=== PATIENT | male | born 1955 | race Hispanic/Latino ===

== ENCOUNTER 2019-05-24 21:05 | Inpatient (IN) | payer BC, MEDICARE ==
[~2019-05-24] VITALS: Ht 162.6 cm; Wt 91.6 kg
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
[2019-05-24 23:07] LABS: BASOPHILS % 0.5 % (0.0-1.0); EOSINOPHILS # (AUTO) 0.3 (0.0-0.4); EOSINOPHILS % 3.4 % (0.0-6.0); HEMOGLOBIN 15.7 g/dL (14.0-18.0); LYMPHOCYTES # (AUTO) 2.4 (1.0-3.2); LYMPHOCYTES % 30.4 % (18.0-39.1); MEAN CORPUSCULAR HEMOGLOBIN 31.8 pg (28-32); MEAN CORPUSCULAR HGB CONC 34.9 g/dL (31-35); MEAN CORPUSCULAR VOLUME 91.3 fL (81-99); MONOCYTES # (AUTO) 0.9 (0.2-0.8); MONOCYTES % 11.5 % (4.4-11.3); NEUTROPHILS # (AUTO) 4.2 (2.1-6.9); NEUTROPHILS % 53.7 % (38.7-80.0); PLATELET COUNT 215 x10e3/uL (140-360); RED BLOOD COUNT 4.93 x10e6/uL (4.3-5.7); RED CELL DISTRIBUTION WIDTH 11.8 % (11.7-14.4)
[2019-05-24 23:20] LABS: ALANINE AMINOTRANSFERASE 46 IU/L (0-55); ALBUMIN 3.7 g/dL (3.5-5.0); ALBUMIN/GLOBULIN RATIO 0.9 (0.8-2.0); ALKALINE PHOSPHATASE 114 IU/L (40-150); ANION GAP 12.8 mmol/L (8-16); BLOOD UREA NITROGEN 16 mg/dL (7-26); BUN/CREATININE RATIO 18 (6-25); CALCIUM 9.5 mg/dL (8.4-10.2); CARBON DIOXIDE 26 mmol/L (22-29); CHLORIDE 102 mmol/L (98-107); CREATININE, SERUM 0.88 mg/dL (0.72-1.25); EST GLOMERULAR FILTRATION RATE > 60 ML/MIN (60-); GLUCOSE 112 mg/dL (74-118); POTASSIUM 3.8 mmol/L (3.5-5.1); SODIUM 137 mmol/L (136-145)
[2019-05-24] MEDS ORDERED: PIPER-TAZ 3.375 GM 50 ML IV ONE (23:30)
[2019-05-24] MEDS ORDERED: VANCOMYCIN 1GM/NS 250 ML 250 ML IV ONE (23:30)
--- NOTE | 2019-05-25 00:12 | Diagnostic Imaging Report ---
HAND 3+ VIEWS LEFT - 3 views HISTORY: Pain COMPARISON: None available. FINDINGS: Bones: No acute displaced fracture. Osseous alignment is within normal limits. Joints: The joint spaces are well-maintained. Soft tissues: Fifth digit soft tissue swelling. IMPRESSION: No acute fracture or dislocation of the left hand. Fifth digit soft tissue swelling. Signed by: Dr. Arnaldo Salazar MD on 05/25/2019 12:09 AM
[2019-05-25] MEDS ORDERED: ONDANSETRON HCL INJ 2MG/ML 2ML 2 MG/ML VIAL IV PRN (00:30)
[2019-05-25] MEDS ORDERED: HYDROCODONE/APAP 10MG-325MG TAB PO PRN (00:30)
[2019-05-25] MEDS: PIPER-TAZ 3.375 GM 50 ML IV SCH ×3 (06:38→21:35)
[2019-05-25 09:15] VITALS: BP 122/86
[2019-05-25 10:00] VITALS: BP 122/86
--- NOTE | 2019-05-25 10:33 | NUR ---
PT TO THE FLOOR FROM ER. VITALS WNL. PT DENIES NEEDS AT THIS TIME.
[2019-05-25 10:48] VITALS: BP 161/98
--- NOTE | 2019-05-25 12:13 | Consultation ---
DATE OF CONSULTATION: 05/25/2019 REASON FOR CONSULTATION: Spider bite, left fifth digit. HISTORY OF PRESENT ILLNESS: The patient is a pleasant, nondiabetic, 63-year-old male, who was bitten by a spider 9 days ago. He now is admitted complaining of pain and swelling of the left 5th digit. He apparently was given Keflex, but did not take it. The patient is nondiabetic. PHYSICAL EXAMINATION: There is a swelling and fusiform deformity of the left fifth finger over the proximal phalanx. There is tenderness on flexion. There is a small necrotic patch of skin in the area. There is some minimal streaking of the arm. ASSESSMENT: Infected spider bite, left fifth digit, possible tenosynovitis. PLAN: To give antibiotics as per ID. I will defer further treatment and surgical intervention as needed. We will consult Dr. Paul Reddy, Plastic Surgery. Thank you very much for the courtesy of this consult. MD KEREN Sebastian/EMILIE /[id number] ANKUSH
[2019-05-25] MEDS ORDERED: CEPHALEXIN500 MG PO (13:20)
[2019-05-25] MEDS ORDERED: LISINOPRIL10 MG PO (13:20)
[2019-05-25] MEDS ORDERED: MUPIROCIN22 GM TOP (13:20)
[2019-05-25 15:01] VITALS: BP 120/81
--- NOTE | 2019-05-25 16:20 | NUR ---
[id number] time spent 60 min
--- NOTE | 2019-05-25 18:56 | History and Physical ---
Mr. Velazquez is a pleasant 63-year-old man, who presented to the emergency room overnight with a complaint of swelling of his left 5th finger erythema. HISTORY OF PRESENT ILLNESS: The patient is slightly vague, but thinks that maybe he was bitten by a bee or spider, maybe as much as 9 days ago, but actually visited [facility] and was given Keflex 500 mg twice a day on Wednesday, May 20, but pill count suggesting may not be taken on a regular basis. He admits that he keeps his gloves in the garage. PAST MEDICAL HISTORY: Relatively insignificant. He was given lisinopril 10 mg daily by his family doctor, which he thinks he does not take. He only things his blood pressures higher in the doctor's office. He has had remote right knee arthroscope. PERSONAL AND SOCIAL HISTORY: Does not smoke nor drink. REVIEW OF SYSTEMS: Fourteen systems are all negative. PHYSICAL EXAMINATION: GENERAL: At this time shows a pleasant, obese, man, who is 5 feet 4 inches tall, weighing 212 pounds. Normotensive. HEAD, EYES, EARS, NOSE, AND THROAT: Unremarkable. NECK: No jugular venous distention. THORAX: Heart sounds S1 and S2 are equal. No murmurs. LUNGS: Clear. ABDOMEN: Protuberant. EXTREMITIES: No cyanosis, clubbing, or edema. There is a small healing wound on the dorsum of the left hand, but the left 5th finger and the 1st phalanx has a flaking lesion, 4 to 5 mm in diameter with surrounding erythema, extending also to the dorsum of the left hand. LABORATORY STUDIES: Grossly unremarkable with a glucose of 112. White count 7.8. ASSESSMENT: Cellulitis, possibly spider bite, could be a brown recluse spider. PLAN: The patient has been given broad-spectrum antibiotics. We will ask Surgical consultation to consider debridement. Further management based on the clinical course. MD LENORA Serrato/EMILIE /[id number] cc: MD Fredo Shin MD Francois Ferron
[2019-05-25 20:00] VITALS: BP 135/98
[2019-05-25] MEDS ORDERED: SODIUM CHLORIDE 0.9% 250ML 250 ML ONE (20:27)
--- NOTE | 2019-05-25 23:37 | Consultation ---
DATE OF CONSULTATION: HISTORY OF PRESENT ILLNESS: This patient is very pleasant 63-year-old gentleman, who is still worse. The patient a few weeks ago while he was cleaning his backyard, he was cleaning an old wood drawer, he thinks he stuck with something. He definitely had some bee hives the next day after he was cleaning the trash when he stuck his right hand. He is coming with redness and swelling of his left hand. This started at the 5th digit. He was seen by physician at Urgent Care and he was given oral antibiotic Keflex without any improvement, but also of interest, he also has another redness and swelling at the base of his third finger. The patient was currently lying in bed comfortably. He was started on vancomycin and Zosyn. I was asked to see him. PAST MEDICAL HISTORY: He denies. PAST SURGICAL HISTORY: He denies. ALLERGIES: NKA. SOCIAL HISTORY: There is no smoking, drug abuse, or alcohol abuse. FAMILY HISTORY: Otherwise unremarkable. REVIEW OF SYSTEMS: HEENT: Negative. PULMONARY: Negative. CARDIAC: Negative. GENITOURINARY: Negative. SKIN: There are no other rashes. PHYSICAL EXAMINATION: GENERAL: He is currently alert, oriented, does not seem to be in acute distress. VITAL SIGNS: Stable, currently afebrile. HEENT: Normocephalic, not icteric. NECK: Supple. No JVD. No lymphadenopathy. No thyromegaly. CHEST: Clear bilateral. HEART: S1, S2. No S3, S4, murmur. ABDOMEN: Soft. Bowel sounds present. No tenderness. No hepatosplenomegaly. EXTREMITIES: No edema. SKIN: There is no rash. There is a redness and swelling of his hand especially at the fifth finger. Also, there is redness, swelling at the base of the fifth finger as well as also redness and swelling at the base of the third finger. I do not see any drainage at the present time, but he is telling me that in the Urgent Care, there was pus drained. LABORATORY DATA: Reviewed white count 7.83, hemoglobin 15.7, sodium 137, potassium 3.8, and creatinine 0.88. IMPRESSION: Infection of the hand, concerned about tenosynovitis affecting his fifth finger, but I am also concerned about this other infection on the third finger at the dorsal aspect. I am not so sure of two insect bites or something related. He denies being in water or cleaning fish tank, etc. An x-ray was negative. I would recommend to obtain an MRI of the hand with and without contrast. Hand Surgery has been consulted. We need deep tissue culture for AFB and fungal and we will follow. MD LILIANE Shin/EMILIE /[id number]
[2019-05-25 23:39] VITALS: BP 109/66
[2019-05-25] MEDS: VANCOMYCIN 1GM/NS 250 ML 250 ML IV SCH (23:47)
[2019-05-26 04:00] VITALS: BP 129/83
[2019-05-26] MEDS: PIPER-TAZ 3.375 GM 50 ML IV SCH ×3 (05:23→21:47)
[2019-05-26 05:52] LABS: BASOPHILS % 0.6 % (0.0-1.0); EOSINOPHILS # (AUTO) 0.2 (0.0-0.4); EOSINOPHILS % 4.1 % (0.0-6.0); HEMATOCRIT 41.2 % (38.2-49.6); HEMOGLOBIN 14.4 g/dL (14.0-18.0); LYMPHOCYTES # (AUTO) 1.8 (1.0-3.2); LYMPHOCYTES % 34.1 % (18.0-39.1); MEAN CORPUSCULAR HEMOGLOBIN 32.3 pg (28-32); MEAN CORPUSCULAR VOLUME 92.4 fL (81-99); MONOCYTES # (AUTO) 0.6 (0.2-0.8); MONOCYTES % 10.6 % (4.4-11.3); NEUTROPHILS # (AUTO) 2.7 (2.1-6.9); NEUTROPHILS % 50.2 % (38.7-80.0); PLATELET COUNT 198 x10e3/uL (140-360); RED BLOOD COUNT 4.46 x10e6/uL (4.3-5.7); RED CELL DISTRIBUTION WIDTH 11.9 % (11.7-14.4)
[2019-05-26 06:10] LABS: ANION GAP 12.5 mmol/L (8-16); BLOOD UREA NITROGEN 11 mg/dL (7-26); BUN/CREATININE RATIO 14 (6-25); CALCIUM 8.9 mg/dL (8.4-10.2); CARBON DIOXIDE 25 mmol/L (22-29); CHLORIDE 105 mmol/L (98-107); EST GLOMERULAR FILTRATION RATE > 60 ML/MIN (60-); GLUCOSE 93 mg/dL (74-118); POTASSIUM 4.5 mmol/L (3.5-5.1); SODIUM 138 mmol/L (136-145)
--- NOTE | 2019-05-26 07:00 | NUR ---
RECEIVED BEDSIDE REPORT FROM BILL CHECKER RN. PT DENIES NEEDS AT THIS TIME.
[2019-05-26 07:34] VITALS: BP 123/81
--- NOTE | 2019-05-26 08:23 | Diagnostic Imaging Report ---
TECHNIQUE: Magnetic resonance imaging of the LEFT HAND was performed WITHOUT injected contrast. HISTORY: Cellulitis, evaluate for osteomyelitis COMPARISON: None. FINDINGS: Bones: Bone marrow signal is normal. No edema or T1 replacement. No acute fracture or osteonecrosis. Joints: No focal lesions are seen. Soft Tissues: Soft tissue swelling and edema involving the hand most prominent involving the ulnar-sided dorsal aspect and small finger. Confluent fluid dorsal index finger, however evaluation for abscess limited without contrast. The flexor and extensor tendons are intact. No tenosynovitis. IMPRESSION: Cellulitis of the hand. No osteomyelitis. Signed by: Dr. Olegario uCevas M.D. on 05/26/2019 8:20 AM
[2019-05-26 09:00] VITALS: BP 123/81
[2019-05-26 12:11] VITALS: BP 130/86
--- NOTE | 2019-05-26 12:16 | Consultation ---
DATE OF CONSULTATION: CONSULT REQUESTED BY: Dr. Alba. Consult requested to Paul Reddy MD, Hand Surgery. CHIEF COMPLAINT: Left hand infection. HISTORY OF PRESENT ILLNESS: The patient is a 63-year-old right-hand dominant male, who states that approximately 10 days ago when taking out the trash, he sustained an injury to the dorsal aspect of the left little finger, just distal to the MP joint. He states that the area became quite red and swollen within the ensuing 24 hours and he was seen by an Urgent Care Center. He was started on oral antibiotics and told to come back in 48 to 72 hours if it did not improve. The patient states that 2 to 3 days later, the infection appeared to be worsening and he went to a different Urgent Care Center. He was once again evaluated and told to continue the antibiotics. Approximately 48 hours ago, the patient came to the [facility] Emergency Room, where he was noted to have significant infection involving the dorsal and lateral aspects of the left hand and he was admitted for intravenous antibiotics. Consultation is now requested by Hand Surgery for optimal evaluation and to rule out tenosynovitis. PAST MEDICAL HISTORY: Only significant for the fact that several weeks ago, the patient had a separate infection on the dorsal aspect of the left hand over the radial side, which he states an Urgent Care Center needed to drain. PHYSICAL EXAMINATION: VITAL SIGNS: On pertinent physical exam today, the patient is afebrile and the vital signs are stable. EXTREMITIES: The left hand shows a dry adherent eschar in the midportion of the proximal phalanx of the left little finger dorsally. There is an area of surrounding erythema, which extends from the mid metacarpal area over to the ring finger and onto the middle phalanx of the little finger as well. There does not appear to be any drainage nor separation from the area where the dry adherent eschar is. The patient has full flexion and full extension, which does not exhibit significant pain. There is no lymphangitic spread of the erythema proximally. VASCULAR: Within normal limits. NEUROLOGIC: Within normal limits as well. LABORATORY AND IMAGING STUDIES: The patient's white blood cell count was 7.8 on admission and this morning was 5.3. The x-ray shows no acute bony abnormalities and MRI obtained last night shows no evidence of tenosynovitis nor osteomyelitis for surgically drainable condition. IMPRESSION: Cellulitis, left hand. PLAN: The patient states that since this time of admission on Wednesday evening, the hand has improved markedly. The pain has improved as well. The MRI confirms that there was no surgically drainable lesion and there does not appear to be any suppurative tenosynovitis. His blood cultures are negative to date. I would recommend the addition of warm soaks just to enhance the circulation to the area since he is on intravenous antibiotics and recommend observation at this time. The patient will be seen tomorrow in followup. Your expression of professional confidence is greatly appreciated. MD BEBETO Turpin/MODL /[id number]
--- NOTE | 2019-05-26 15:00 | NUR ---
PT'S PRIMARY CARE PROVIDER IS DR. HUI AT [phone]. THIS NURSE PLACED CALL FOR REFERRAL PER DR. EUBANKS ONLY TO FIND THE CLINIC CLOSED.
--- NOTE | 2019-05-26 16:27 | NUR ---
REPORT GIVEN TO LUPE RODRIGUEZ ON MED/SURG 2. PT TRANSFERRED TO ROOM 200. PT DENIED FURTHER NEEDS.
--- NOTE | 2019-05-26 16:33 | NUR ---
PAOLA VIZCAINO CALLED WITH INFORMATION. NO FURTHER ORDERS.
--- NOTE | 2019-05-26 17:00 | NUR ---
HEAT PACKS APPLIED TO PT'S LEFT HAND.
--- NOTE | 2019-05-26 17:10 | NUR ---
The pt. has had PICC line placed and awaiting x ray confirmation.
--- NOTE | 2019-05-26 17:34 | Diagnostic Imaging Report ---
Chest, portable AP view History: Placement Comparison: No comparisons available for review IMPRESSION: Left upper extremity PICC terminates in excellent position at the cavoatrial junction. The heart is within normal limits of size. No focal consolidation, sizable pleural effusion, or pneumothorax. Signed by: Austyn Haney MD on 05/26/2019 5:31 PM
--- NOTE | 2019-05-26 17:37 | NUR ---
Verbal report from Dr Haney radiology, PICC is in good position. PICC is OK to use
[2019-05-26 20:00] VITALS: BP 119/76
--- NOTE | 2019-05-26 20:30 | NUR ---
warm soaks to left hand done, patient tolerated well.
[2019-05-26 21:00] VITALS: BP 119/76
[2019-05-26] MEDS ORDERED: SODIUM CHLORIDE 0.9% 250ML 250 ML ONE (21:32)
[2019-05-26] MEDS: VANCOMYCIN 1GM/NS 250 ML 250 ML IV SCH (23:15)
[2019-05-27] VITALS (9 sets, daily range): BP systolic 114–132; BP diastolic 60–88
[2019-05-27] MEDS: PIPER-TAZ 3.375 GM 50 ML IV SCH ×3 (05:44→21:48)
--- NOTE | 2019-05-27 19:00 | NUR ---
Completed bedside reporting with morning nurse. Pt alert and orient to name, lying in bed HOB 60 degrees. Denies pain at this time. Family at bedside. Call light within reach. Bed low and locked. Will continue to monitor.
--- NOTE | 2019-05-27 23:30 | NUR ---
Report given to oncoming night nurse. Pt alert and orient. Lying in bed. No acute distress noted.
[2019-05-28] VITALS (7 sets, daily range): BP systolic 124–139; BP diastolic 78–86
[2019-05-28] MEDS: VANCOMYCIN 1GM/NS 250 ML 250 ML IV SCH (00:14)
[2019-05-28] MEDS: PIPER-TAZ 3.375 GM 50 ML IV SCH ×3 (05:14→20:26)
--- NOTE | 2019-05-28 06:52 | NUR ---
report given to morning nurse. patient is resting comfortably in bed. bed is in lowest position and call goss is within reach. will continue to monitor patient.
[2019-05-28] MEDS ORDERED: EPSOM SALT 454 GM POWD TOP SCH (10:00)
--- NOTE | 2019-05-28 19:05 | NUR ---
Received report from day nurse. Patient is resting comfortably in bed. Bed is in lowest position and call goss is within reach. Will continue to monitor patient.
[2019-05-29] VITALS (8 sets, daily range): BP systolic 117–159; BP diastolic 72–87
[2019-05-29] MEDS: VANCOMYCIN 1GM/NS 250 ML 250 ML IV SCH ×2 (00:04→23:37)
[2019-05-29] MEDS: PIPER-TAZ 3.375 GM 50 ML IV SCH ×3 (05:25→22:07)
--- NOTE | 2019-05-29 07:00 | NUR ---
RCD PT AT BED PT IS ALERT AND ORIENTED PT RESTING ON BED NO SIGNS OF ANY DISTRESS NOTED IV PATENT BY SALINE FLUSH BED LOW AND LOCKED CALL LIGHT IN REACH
--- NOTE | 2019-05-29 07:05 | NUR ---
report given to day nurse. patient is resting comfortably in bed. bed is in lowest position and call goss is within reach.
[2019-05-29] MEDS: EPSOM SALT 454 GM POWD TOP SCH ×2 (10:00→17:00)
--- NOTE | 2019-05-29 10:37 | NUR ---
spoke with Dr. Acharya's nurse Virgie, still pending auth from insurance for IV abx.
--- NOTE | 2019-05-29 16:25 | NUR ---
[id number] CELLULITS FINGER ABCESS FAILED OPORAL ABX
--- NOTE | 2019-05-29 19:00 | NUR ---
PT RESTING ON BED BED SIDE REPORT GIVEN TO ONCOMING NURSE
--- NOTE | 2019-05-29 19:03 | Progress Note ---
DATE: SUBJECTIVE: Cellulitis of the finger, abscess of the finger. The patient who is currently lying in bed comfortably. His finger feeling better. REVIEW OF SYSTEMS: HEENT: Negative. PULMONARY: Negative. CARDIAC: Negative. PHYSICAL EXAMINATION: GENERAL: He is currently alert, oriented, does not seem to be in acute distress. VITAL SIGNS: Stable, currently afebrile. HEENT: Not icteric. NECK: Supple. CHEST: Clear. HEART: S1, S2. No murmur. ABDOMEN: Soft. EXTREMITIES: The little finger, there is still redness and swelling. The MRI did not show any tendonitis or osteomyelitis, however, when I squeeze the finger, then I was able to obtain one drop of pus. We could not culture by the time I get the culture, it was too late. The patient tells me he was on IV antibiotic. He is feeling better. The finger, there is still erythema and edema as mentioned above. IMPRESSION: Abscess of the finger, failed oral antibiotic. Discussed with the patient. We will seek approval of the insurance. Again, vancomycin 1 g q.12 since he failed oral antibiotic, but responding to IV antibiotic. I will see him next week in my office. If he is feeling better, maybe we can stop early, but that depends. Discussed with the patient and discussed with case management. We will follow with you. MD LILIANE Shin/EMILIE /[id number]
[2019-05-30] VITALS: BP 113/78
[2019-05-30 04:00] VITALS: BP 123/81
[2019-05-30] MEDS: PIPER-TAZ 3.375 GM 50 ML IV SCH ×2 (05:51→14:25)
[2019-05-30 07:58] VITALS: BP 134/76
--- NOTE | 2019-05-30 08:42 | NUR ---
CM called pt's PCP Dr. Jerome's office, per Dr. Acharya's request. They need a referral for insurance to set up IV abx thru the office. [facility]ANS was told by office that they only do office visits, no referrals. EVANS informed Dr. Acharya and asked for orders to set up IV abx thru an infusion company. He stated to hold off since his office is currently working on it.
[2019-05-30 09:07] VITALS: BP 134/76
[2019-05-30] MEDS: EPSOM SALT 454 GM POWD TOP SCH (10:00)
--- NOTE | 2019-05-30 10:56 | NUR ---
EVANS spoke with Dr. Acharya's nurse Virgie. She stated that she called pt's PCP office and Dr. Jerome will call Dr. Acharya today regarding referral. Virgie states they can get auth almost immediately after referral is sent. EVANS informed her that Dr. Alba wants pt to discharge today.
[2019-05-30 12:00] VITALS: BP 189/88
--- NOTE | 2019-05-30 12:16 | NUR ---
Spoke with Dr. Acharya who said IV abx does not need to be set up. He wrote prescription for PO Zyvox and left on chart.
--- NOTE | 2019-05-30 12:30 | NUR ---
Dr. Acharya made rounds. Patient was given prescription for oral antibiotic x 2 weeks and instructions to f/u in clinic and dc PICC line
[2019-05-30] MEDS ORDERED: ZYVOX600 MG PO (13:37)
--- NOTE | 2019-05-30 14:24 | NUR ---
Discharge instructions and prescription given to the patient, he verbalized understanding.
--- NOTE | 2019-05-30 15:18 | Progress Note ---
DATE: SUBJECTIVE: Mr. Velazquez was doing well. No new complaint. I have spent all morning and yesterday to get hold of his primary care physician to get referral for IV antibiotic. I was unsuccessful, asked the Case Management, she was unsuccessful. Apparently, they are retiring soon. The patient is telling me that his PCP is Dr. Bocanegra, who has told that the physician will retire soon. Anyway, I left message to call me. The patient would like to go home. Discussed with all physicians, all surgeons. There is no evidence of osteo or abscess. We will discharge the patient with oral Zyvox 600 mg p.o. q.12 hours. To see me in 2 weeks. Time spend during the day and working on getting hold of his primary care physician, talking with the patient, talking with Dr. Alba, talking with the surgeons 1-hour today. MD LILIANE Shin/EMILIE /[id number]
--- NOTE | 2019-05-30 15:30 | NUR ---
Spoke with Dr. Acharya's nurse Virgie. She states Dr. Jerome's office was asking for clinicals. CM spoke to pt at bedside and pt is agreeable for CM to send clinicals to office. Choice letter signed and placed on chart. Clinicals were faxed to [phone].
[2019-05-30 16:00] VITALS: BP 153/92
--- NOTE | 2019-05-30 16:23 | NUR ---
PICC line removed with tip intact from [facility]
--- NOTE | 2019-05-31 09:43 | Discharge Summary ---
Mr. Velazquez is a pleasant 63-year-old man, who presented to the emergency room on with a complaint of swelling and redness and pain in his left hand. HOSPITAL COURSE: Initial evaluation suggested possible spider bite with secondary cellulitis. He had already been given Keflex as an outpatient basis, but was not getting better. Pill count suggest he might not have been taking his medicines reliably. He was seen by Dr. Acharya, who prescribed IV antibiotics and Dr. Campbell Elmore, felt he did not immediately need debridement, but he suggested consultation with Dr. Reddy, hand surgeon, who did an MRI and CAT scan, which did not show osteomyelitis and did not show involvement of the tendons. He had no surgical procedure, but was started on IV antibiotics and a PICC line was placed. He was given Epsom salts for soaking. Today, the patient is afebrile. Pain is less and he is eager to be discharged home. He will receive IV antibiotics with PICC line with Dr. Acharya. He will follow up with Dr. Jerome on a regular basis. DISCHARGE DIAGNOSES: 1. Probable spider bite. 2. Secondary cellulitis. MD LENORA Serrato/EMILIE /[id number] cc: MD Paul Sebastian MD Francois Ferron Zaher Shebib, MD
--- NOTE | 2019-06-09 13:06 | NUR ---
RUFINA FROM [facility] CALLED AND REQUESTED I FAX DISCHARGE SUMMARY AND DAYTIME BABYSITTERCARBON PRINTER TO [phone], FAXED AND GAVE CONFIRMATION TO SMITA Lee
== END 2019-05-30 17:13 | disposition home or self-care (01) | DRG 603 ==
LOC: ER 21:05 → ERHOLD 05-25 00:29 → IMCU 05-25 10:30 → OBSVTOIN 05-26 13:17 → MED/SURG2 05-26 16:19
PROVIDERS: ADMIT Internal Medicine Cardiovascular Disease; ATTEND Internal Medicine Cardiovascular Disease
PROC: 02HV33Z Insertion of Infusion Device into Superior Vena Cava, Percutaneous Approach (ICD-10-PCS; principal; 2019-05-26)
PROC: B548ZZA Ultrasonography of Superior Vena Cava, Guidance (ICD-10-PCS; 2019-05-26)
DX: L03.114 Cellulitis of left upper limb (principal); L02.512 Cutaneous abscess of left hand; T63.301A Toxic effect of unspecified spider venom, accidental (unintentional), initial encounter; Z82.49 Family history of ischemic heart disease and other diseases of the circulatory system; M79.641 Pain in right hand
CPT/HCPCS: 36415; 36569; 71045; 80048; 80053; 80202; 85025; 87040; G0378; J2543; J3370; J7050

== ENCOUNTER 2019-12-28 11:25 | Emergency (ER) | payer BC, MEDICARE ==
[~2019-12-28] VITALS: Ht 162.6 cm; Wt 91.6 kg
[~2019-12-28 11:25] MED LIST: CEPHALEXIN500 MG PO; LISINOPRIL10 MG PO; MUPIROCIN22 GM TOP; ZYVOX600 MG PO
--- NOTE | 2019-12-28 12:23 | Emergency Department Note ---
History of Present Illnes History of Present Illness Chief Complaint: COVID PUI History of Present Illness This is a 64 year old male arrived to the ED with cough and sob, was swabbed for covid and test is pending Historian: Patient Arrival Mode: Car Onset (how long ago): day(s) Severity: mild Onset quality: gradual Timing of current episode: constant Progression: unchanged Chronicity: new Relieving factors: none Exacerbating factors: none Past Medical/Family History Physician Review I have reviewed the patient's past medical and family history. Any updates have been documented here. Past Medical History Recent Fever: Yes Clinical Suspicion of Infectio: Yes New/Unexplained Change in Ment: No Past Medical History: Hypertension, Kidney Stones Past Surgical History: Appendectomy Other Surgery: FISSURE/FISTULA IN RECTUM BILATRAL KNEE SX TORN MINISCUS Social History Physically hurt or threatened: No Other Last Tetanus: UTD Review of Systems Review of Systems Constitutional: Reports as per HPI, Reports fever, Reports malaise, Reports weakness EENTM: Reports no symptoms Cardiovascular: Reports no symptoms Respiratory: Reports as per HPI Gastrointestinal: Reports no symptoms Genitourinary: Reports no symptoms Musculoskeletal: Reports no symptoms Integumentary: Reports no symptoms Neurological: Reports no symptoms Psychological: Reports no symptoms Endocrine: Reports no symptoms Hematological/Lymphatic: Reports no symptoms Physical Exam Related Data Allergies: Coded Allergies: No Known Allergies (Unverified , 05/24/19) Triage Vital Signs Vital Signs Date Time Temp Pulse Resp B/P (MAP) Pulse Ox O2 Delivery O2 Flow Rate FiO2 12/28/19 12:04 100.0 104 22 142/95 97 Room Air Vital signs reviewed: Yes Physical Exam CONSTITUTIONAL Constitutional: Present well-developed, Present well-nourished HENT HENT: Present normocephalic, Present atraumatic, Present oropharynx naldo ar/moist, Present nose normal HENT L/R: Present left ext ear normal, Present right ext ear normal EYES Eyes: Reports PERRL, Reports conjunctivae normal NECK Neck: Present ROM normal PULMONARY Pulmonary: Present effort normal, Present breath sounds normal CARDIOVASCULAR Cardiovascular: Present regular rhythm, Present heart sounds normal, Present capillary refill normal, Present normal rate GASTROINTESTINAL Abdominal: Present soft, Present nontender, Present bowel sounds normal GENITOURINARY Genitourinary: Present exam deferred SKIN Skin: Present warm, Present dry MUSCULOSKELETAL Musculoskeletal: Present ROM normal NEUROLOGICAL Neurological: Present alert, Present oriented x 3, Present no gross motor or sensory deficits PSYCHOLOGICAL Psychological: Present mood/affect normal, Present judgement normal Assessment & Plan Medical Decision Making MDM 64-year-old well-appearing male arrives to the ED with complaints of cough fever loss of taste and smell. Patient is clinically presenting with signs and symptoms consistent with Covid 19. Patient informed he is positive until proven otherwise. Patient's oxygen saturation remained 99% even on exertion, no evidence of tachypnea or dyspnea noted in the ED. Spoke present length about the importance of sleeping on his stomach and rotating from side to side. Z-Lane and Decadron given, signs and symptoms for return discussed. In the light of the Covid pandemic, disaster medicine care was given- patient understands why he was not tested for Covid 19 in the ED, no indications for a chest x-ray at this time given normal oxygen saturation and respiratory status. Patient's lab work reviewed,- chest x-ray shows questionable patchy airspace opacities . Patient clinically appears well, outpatient pulmonary follow-up given. The red flags for return to emergency department given. Patient understands the emergency department is open at all times to serve his needs as well as the needs of the community. Assessment & Plan Final Impression: (1) COVID-19 Depart Disposition: HOME, SELF-CARE Last Vital Signs Date Time Temp Pulse Resp B/P (MAP) Pulse Ox O2 Delivery O2 Flow Rate FiO2 12/28/19 12:04 100.0 104 22 142/95 97 Room Air Home Meds Reported Medications Linezolid (ZYVOX) 600 Mg Tablet, 600 MG PO Q12H, #30 TAB x 2 weeks 05/30/19 Mupirocin (MUPIROCIN) 22 Gm Oint...g., 22 GM TOP, EACH 05/25/19 Lisinopril (LISINOPRIL) 10 Mg Tablet, 10 MG PO DAILY, #30 TAB 05/25/19 DIMA SCHMID DO Dec 28, 2019 12:23
== END 2019-12-28 12:10 | disposition home or self-care (01) ==
LOC: ER 12:09
DX: U07.1 COVID-19 (principal); R50.9 Fever, unspecified; R05 Cough; I10 Essential (primary) hypertension
CPT/HCPCS: 99282

== ENCOUNTER 2021-04-14 12:13 | Emergency (ER) | payer BC, OTHER ==
[~2021-04-14] VITALS: Ht 167.6 cm; Wt 93.4 kg
[2021-04-14] MEDS ORDERED: ACETAMINOPHEN/CODEINE 300MG - 30MG TAB PO ONE (13:30)
[2021-04-14] MEDS ORDERED: SODIUM CHLORIDE 0.9% 1000ML 500 ML IV SCH (13:45)
[2021-04-14 15:38] LABS: BASOPHILS % 0.1 % (0.0-1.0); HEMATOCRIT 46.8 % (38.2-49.6); HEMOGLOBIN 15.6 g/dL (14.0-18.0); LYMPHOCYTES # (AUTO) 0.7 (1.0-3.2); LYMPHOCYTES % 7.1 % (18.0-39.1); MEAN CORPUSCULAR HEMOGLOBIN 31.7 pg (28-32); MEAN CORPUSCULAR HGB CONC 33.3 g/dL (31-35); MEAN CORPUSCULAR VOLUME 95.1 fL (81-99); MONOCYTES # (AUTO) 0.2 (0.2-0.8); NEUTROPHILS % 90.5 % (38.7-80.0); PLATELET COUNT 168 x10e3/uL (140-360); RED BLOOD COUNT 4.92 x10e6/uL (4.3-5.7); RED CELL DISTRIBUTION WIDTH 12.3 % (11.7-14.4)
[2021-04-14 15:47] LABS: INR 1.04
[2021-04-14 15:48] LABS: PARTIAL THROMBOPLASTIN TIME 27.8 seconds (23.8-35.5)
[2021-04-14 15:53] LABS: BLOOD UREA NITROGEN 15 mg/dL (7-26); BUN/CREATININE RATIO 19 (6-25); CALCIUM 9.1 mg/dL (8.4-10.2); CARBON DIOXIDE 24 mmol/L (22-29); CHLORIDE 108 mmol/L (98-107); CREATINE KINASE 117 IU/L (30-200); CREATININE, SERUM 0.81 mg/dL (0.72-1.25); EST GLOMERULAR FILTRATION RATE 95 ML/MIN (60-); GLUCOSE 126 mg/dL (74-118); SODIUM 142 mmol/L (136-145)
== END 2021-04-14 18:37 | disposition home or self-care (01) ==
LOC: ER 12:25
DX: R07.89 Other chest pain (principal); V43.62XA Car passenger injured in collision with other type car in traffic accident, initial encounter; Y92.488 Other paved roadways as the place of occurrence of the external cause; I10 Essential (primary) hypertension
CPT/HCPCS: 36415; 71045; 80048; 82550; 82553; 84484; 85025; 85610; 85730; 93005; 99284; J7030

== ENCOUNTER 2021-04-15 16:05 | Inpatient (IN) | payer BC, MEDICARE ==
[~2021-04-15] VITALS: Ht 167.6 cm; Wt 97.1 kg
[2021-04-15] MEDS ORDERED: SODIUM CHLORIDE 0.9% 1000ML 1,000 ML IV STA ×2 (16:39→18:58)
[2021-04-15] MEDS ORDERED: ACETAMINOPHEN 325 MG TAB PO ONE (16:45)
[2021-04-15 16:51] LABS: BASOPHILS % 0.3 % (0.0-1.0); EOSINOPHILS % 0.3 % (0.0-6.0); HEMOGLOBIN 14.6 g/dL (14.0-18.0); LYMPHOCYTES # (AUTO) 0.3 (1.0-3.2); LYMPHOCYTES % 2.7 % (18.0-39.1); MEAN CORPUSCULAR HEMOGLOBIN 32.2 pg (28-32); MEAN CORPUSCULAR HGB CONC 34.8 g/dL (31-35); MEAN CORPUSCULAR VOLUME 92.5 fL (81-99); MONOCYTES # (AUTO) 0.3 (0.2-0.8); MONOCYTES % 2.8 % (4.4-11.3); NEUTROPHILS # (AUTO) 10.2 (2.1-6.9); NEUTROPHILS % 93.5 % (38.7-80.0); PLATELET COUNT 133 x10e3/uL (140-360); RED BLOOD COUNT 4.54 x10e6/uL (4.3-5.7); RED CELL DISTRIBUTION WIDTH 12.3 % (11.7-14.4)
[2021-04-15 17:03] LABS: CLARITY,URINE SL CLOUDY (CLEAR); COLOR,URINE STRAW (YELLOW); KETONES,URINE NEGATIVE (NEGATIVE); LEUKOCYTE ESTERASE ,URINE NEGATIVE (NEGATIVE); NITRITE,URINE NEGATIVE (NEGATIVE); PROTEIN,URINE DIPSTICK NEGATIVE (NEGATIVE); URINE UROBILINOGEN 1 mg/dL (0.2 - 1)
[2021-04-15 17:10] LABS: B-TYPE NATRIURETIC PEPTIDE2 50.7 pg/mL (0-100)
[2021-04-15 17:11] LABS: ALBUMIN 3.7 g/dL (3.5-5.0); ALBUMIN/GLOBULIN RATIO 1.1 (0.8-2.0); ANION GAP 16.4 mmol/L (8-16); CALCIUM 8.6 mg/dL (8.4-10.2); CREATININE, SERUM 0.81 mg/dL (0.72-1.25); POTASSIUM 3.4 mmol/L (3.5-5.1)
[2021-04-15 17:18] LABS: CREATINE KINASE MB 5.4 ng/mL (0-5.0)
[2021-04-15 17:19] LABS: BACTERIA,URINE RARE /HPF; RBC,URINE 0-5 /HPF (0-5)
[2021-04-15] MEDS ORDERED: PIPERACILLIN/TAZOBACTAM 3.375 GM in SODIUM CHLORIDE 0.9% 50ML 50 ML IV STA (17:46)
[2021-04-15] MEDS ORDERED: SODIUM CHLORIDE 0.9% 50ML 50 ML ONE (17:52)
[2021-04-15] MEDS ORDERED: IOPAMIDOL 370 MG/ML 200 ML INFUS..BTL INJ ONE (17:53)
[2021-04-15] MEDS ORDERED: POTASSIUM CHLORIDE 10MEQ EA PO ONE (19:15)
[2021-04-15] MEDS ORDERED: METOPROLOL TARTRATE INJ 1 MG/ML VIAL IV ONE (19:15)
[2021-04-15] MEDS: SODIUM CHLORIDE 0.9% 1000ML 1,000 ML IV SCH (20:00)
[2021-04-15 21:40] VITALS: BP 121/86
[2021-04-15 21:45] VITALS: BP 121/86
[2021-04-15 21:50] VITALS: BP 121/86
[2021-04-15 23:41] VITALS: BP 107/76
[2021-04-15] MEDS: PIPERACILLIN/TAZOBACTAM 3.375 GM in SODIUM CHLORIDE 0.9% 50ML 50 ML IV SCH (23:56)
[2021-04-16] VITALS (8 sets, daily range): BP systolic 104–140; BP diastolic 73–85
[2021-04-16] MEDS ORDERED: HYDROCODON-ACE1 EAC9 PO (00:36)
[2021-04-16] MEDS ORDERED: ASPIRIN325 MG PO (00:36)
[2021-04-16] MEDS ORDERED: BACTRIM DS TAB1 EACH PO (00:36)
[2021-04-16] MEDS: SODIUM CHLORIDE 0.9% 1000ML 1,000 ML IV SCH ×4 (04:55→23:48)
[2021-04-16] MEDS: PIPERACILLIN/TAZOBACTAM 3.375 GM in SODIUM CHLORIDE 0.9% 50ML 50 ML IV SCH ×4 (05:02→23:48)
[2021-04-16 05:05] LABS: BASOPHILS # (AUTO) 0.1 (0.0-0.1); EOSINOPHILS # (AUTO) 0.1 (0.0-0.4); EOSINOPHILS % 1.5 % (0.0-6.0); HEMATOCRIT 37.3 % (38.2-49.6); HEMOGLOBIN 12.5 g/dL (14.0-18.0); LYMPHOCYTES # (AUTO) 0.3 (1.0-3.2); LYMPHOCYTES % 6.3 % (18.0-39.1); MEAN CORPUSCULAR HEMOGLOBIN 31.9 pg (28-32); MEAN CORPUSCULAR HGB CONC 33.5 g/dL (31-35); MEAN CORPUSCULAR VOLUME 95.2 fL (81-99); MONOCYTES # (AUTO) 0.1 (0.2-0.8); MONOCYTES % 1.7 % (4.4-11.3); NEUTROPHILS # (AUTO) 4.7 (2.1-6.9); NEUTROPHILS % 89.1 % (38.7-80.0); PLATELET COUNT 103 x10e3/uL (140-360); RED BLOOD COUNT 3.92 x10e6/uL (4.3-5.7); RED CELL DISTRIBUTION WIDTH 12.7 % (11.7-14.4)
[2021-04-16 05:47] LABS: ALBUMIN 2.8 g/dL (3.5-5.0); ANION GAP 10.6 mmol/L (8-16); CALCIUM 7.2 mg/dL (8.4-10.2); CREATININE, SERUM 0.72 mg/dL (0.72-1.25); POTASSIUM 3.6 mmol/L (3.5-5.1)
[2021-04-16 06:19] LABS: CREATINE KINASE MB 1.3 ng/mL (0-5.0)
[2021-04-16 07:32] LABS: BAND NEUTROPHILS % (MANUAL) 4 %; LYMPHOCYTES % (MANUAL) 10 % (19-48); NEUTROPHILS % (MANUAL) 86 % (40-74)
[2021-04-16 07:33] LABS: PLATELET ESTIMATE SLIGHTLY DECREASED; PLATELET MORPHOLOGY COMMENT NORMAL; RBC MORPHOLOGY COMMENT NORMAL
[2021-04-16] MEDS ORDERED: CEFTRIAXONE 1 GM in SODIUM CHLORIDE 0.9% 50ML 50 ML IV SCH (09:00)
[2021-04-16] MEDS: ACETAMINOPHEN 325 MG TAB PO PRN (12:37)
[2021-04-16 14:37] LABS: CREATINE KINASE MB 1.4 ng/mL (0-5.0)
[2021-04-16] MEDS ORDERED: IOPAMIDOL 370 MG/ML 200 ML INFUS..BTL INJ ONE (18:49)
[2021-04-16] MEDS ORDERED: SODIUM CHLORIDE 0.9% 50ML 50 ML ONE (18:49)
[2021-04-17] VITALS (10 sets, daily range): BP systolic 113–135; BP diastolic 79–92
[2021-04-17 04:56] LABS: HEMATOCRIT 41.4 % (38.2-49.6); HEMOGLOBIN 14.2 g/dL (14.0-18.0); MEAN CORPUSCULAR HEMOGLOBIN 31.9 pg (28-32); MEAN CORPUSCULAR HGB CONC 34.3 g/dL (31-35); PLATELET COUNT 91 x10e3/uL (140-360); RED BLOOD COUNT 4.45 x10e6/uL (4.3-5.7); RED CELL DISTRIBUTION WIDTH 12.5 % (11.7-14.4)
[2021-04-17 05:28] LABS: ALBUMIN 2.9 g/dL (3.5-5.0); ALBUMIN/GLOBULIN RATIO 0.9 (0.8-2.0); CALCIUM 7.8 mg/dL (8.4-10.2); CREATININE, SERUM 0.7 mg/dL (0.72-1.25)
[2021-04-17] MEDS: PIPERACILLIN/TAZOBACTAM 3.375 GM in SODIUM CHLORIDE 0.9% 50ML 50 ML IV SCH (05:42)
[2021-04-17 07:41] LABS: EOSINOPHILS % (MANUAL) 3 % (0-7); LYMPHOCYTES % (MANUAL) 15 % (19-48); MONOCYTES % (MANUAL) 4 % (3.4-9.0); NEUTROPHILS % (MANUAL) 78 % (40-74)
[2021-04-17 07:42] LABS: PLATELET ESTIMATE MODERATELY DECREASED; PLATELET MORPHOLOGY COMMENT NORMAL; RBC MORPHOLOGY COMMENT NORMAL
[2021-04-17] MEDS: SODIUM CHLORIDE 0.9% 1000ML 1,000 ML IV SCH ×3 (10:05→23:44)
[2021-04-17] MEDS: ACETAMINOPHEN 325 MG TAB PO PRN ×2 (20:55)
[2021-04-18] VITALS (8 sets, daily range): BP systolic 122–135; BP diastolic 79–92
[2021-04-18] MEDS: SODIUM CHLORIDE 0.9% 1000ML 1,000 ML IV SCH ×2 (06:33→14:52)
[2021-04-18 11:12] LABS: HEMATOCRIT 41.7 % (38.2-49.6); HEMOGLOBIN 14.3 g/dL (14.0-18.0); MEAN CORPUSCULAR HEMOGLOBIN 31.8 pg (28-32); MEAN CORPUSCULAR HGB CONC 34.3 g/dL (31-35); MEAN CORPUSCULAR VOLUME 92.7 fL (81-99); PLATELET COUNT 117 x10e3/uL (140-360); RED CELL DISTRIBUTION WIDTH 12.5 % (11.7-14.4)
[2021-04-18 11:35] LABS: ALBUMIN/GLOBULIN RATIO 0.8 (0.8-2.0); ANION GAP 11.4 mmol/L (8-16); CALCIUM 8.3 mg/dL (8.4-10.2); CREATININE, SERUM 0.68 mg/dL (0.72-1.25); POTASSIUM 3.4 mmol/L (3.5-5.1)
[2021-04-18 12:13] LABS: EOSINOPHILS % (MANUAL) 2 % (0-7); LYMPHOCYTES % (MANUAL) 29 % (19-48); MONOCYTES % (MANUAL) 3 % (3.4-9.0); NEUTROPHILS % (MANUAL) 66 % (40-74); PLATELET ESTIMATE SLIGHTLY DECREASED; PLATELET MORPHOLOGY COMMENT FEW GIANT
[2021-04-18 12:14] LABS: RBC MORPHOLOGY COMMENT NORMAL
[2021-04-19] VITALS (8 sets, daily range): BP systolic 126–137; BP diastolic 77–99
[2021-04-19] MEDS: SODIUM CHLORIDE 0.9% 1000ML 1,000 ML IV SCH ×4 (00:28→22:00)
[2021-04-19] MEDS ORDERED: POTASSIUM CHLORIDE 20 MEQ TAB CR PO NR (09:30)
[2021-04-19] MEDS: POTASSIUM CHLORIDE 20 MEQ TAB CR PO NR (13:45)
[2021-04-20] VITALS: BP 131/91
[2021-04-20 05:43] VITALS: BP 121/85
[2021-04-20 08:00] VITALS: BP 138/89
[2021-04-20] MEDS: POTASSIUM CHLORIDE 20 MEQ TAB CR PO NR (08:29)
[2021-04-20] MEDS: SODIUM CHLORIDE 0.9% 1000ML 1,000 ML IV SCH ×2 (08:29→17:08)
[2021-04-20 09:53] LABS: ALBUMIN 3.3 g/dL (3.5-5.0); ALBUMIN/GLOBULIN RATIO 0.9 (0.8-2.0); ANION GAP 14.5 mmol/L (8-16); CALCIUM 8.8 mg/dL (8.4-10.2); CREATININE, SERUM 0.68 mg/dL (0.72-1.25); POTASSIUM 4.5 mmol/L (3.5-5.1)
== END 2021-04-20 20:24 | disposition home or self-care (01) | DRG 864 ==
LOC: ER 16:10 → ERHOLD 18:09 → IMCU 21:36 → MED/SURG3 04-19 14:00
PROVIDERS: ADMIT Internal Medicine; ATTEND Internal Medicine
DX: R50.9 Fever, unspecified (principal); K80.10 Calculus of gallbladder with chronic cholecystitis without obstruction; I10 Essential (primary) hypertension; K74.60 Unspecified cirrhosis of liver; M25.462 Effusion, left knee; Z20.822 Contact with and (suspected) exposure to COVID-19; S80.02XA Contusion of left knee, initial encounter; K80.80 Other cholelithiasis without obstruction; Z98.890 Other specified postprocedural states
CPT/HCPCS: 36415; 71045; 71260; 74177; 74181; 76705; 78227; 80053; 81001; 82550; 82553; 83605; 83880; 84484; 85007; 85025; 85027; 87040; 87086; 87400; 93005; 93306; 93971; 96360; 96361; 99251; 99284; A9537; J2543; J7030; Q9967; U0002